=== PATIENT | male | born 1985 | race Caucasian/White ===

== ENCOUNTER 2016-09-21 21:04 | Emergency (ER) | payer SELFPAY ==
[~2016-09-21] VITALS: Ht 160 cm; Wt 66.5 kg
[~2016-09-21 21:04] MED LIST: ACET1TAB40 PO; FAMO-18 PO; HYDR-3498 PO; PANT40TA3 PO; PRED20TA PO
[2016-09-21 21:05] VITALS: Ht 160 cm; Wt 66.5 kg
== END 2016-09-21 23:15 | disposition left against medical advice (07) ==
LOC: FTE 21:04
DX: Z53.21 Procedure and treatment not carried out due to patient leaving prior to being seen by health care provider (principal)

== ENCOUNTER 2017-02-07 15:26 | Emergency (ER) | payer OTHER ==
[~2017-02-07] VITALS: Ht 157.5 cm; Wt 65.0 kg
[2017-02-07 15:29] VITALS: Ht 157.5 cm; Wt 65.0 kg
[2017-02-07] MEDS ORDERED: ONDANSETRON (ODT) 4 MG TAB ODT STA (16:37)
[2017-02-07] MEDS ORDERED: HYDROCODONE/APAP (5/325) TAB PO ONE (17:00)
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
--- NOTE | 2017-02-07 17:32 | RADRPT ---
PROCEDURE: XR Left Hand. CLINICAL INDICATION: Left hand pain. TECHNIQUE: Three views. Frontal lateral and oblique images of the left hand were obtained. COMPARISON: No prior studies are available for comparison. FINDINGS: There is no fracture or dislocation. The soft tissues are normal. Articular surfaces are intact. There is no lytic or blastic lesion. There is no radiopaque foreign body. IMPRESSION: 1. Unremarkable images of the left hand. RPTAT: QQ .Javier Felix MD, MD Date Time Electronically viewed and signed by .Javier Felix MD, MD on 02/07/2017 17:32 .R/
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
[2017-02-07] MEDS ORDERED: ACET500C5 PO (17:42)
[2017-02-07] MEDS ORDERED: NAPR-260 PO (17:42)
[2017-02-07] MEDS ORDERED: NEOM1PAC TP (17:43)
[2017-02-07] MEDS ORDERED: ONDA4TAB8 PO (17:44)
[2017-02-07] MEDS ORDERED: BACITRACIN 0.9 GM OINT TOP ONE (18:00)
[2017-02-07 18:01] VITALS: BP 121/74; PULSE 73; RESP 18; TEMP 98.7
== END 2017-02-07 18:04 | disposition home or self-care (01) ==
LOC: FTE 15:26
DX: S09.90XA Unspecified injury of head, initial encounter (principal); S40.212A Abrasion of left shoulder, initial encounter; R11.0 Nausea; F17.210 Nicotine dependence, cigarettes, uncomplicated; R51 Headache; V13.4XXA Pedal cycle driver injured in collision with car, pick-up truck or van in traffic accident, initial encounter
CPT/HCPCS: 70450; 73030; 73130; Z7502; Z7610

== ENCOUNTER 2018-04-10 18:09 | Emergency (ER) | END 2018-04-10 19:09 | disposition home or self-care (01) ==

== ENCOUNTER 2019-01-19 13:13 | Emergency (ER) | payer OTHER ==
[~2019-01-19] VITALS: Wt 62.1 kg
[~2019-01-19 13:13] MED LIST changes: +ACET500C5 PO; +CLOT30CR24 TOP; -FAMO-18 PO; +FAMO-96 PO; +NAPR-985 PO; +NEOM1PAC TP; +ONDA4TAB8 PO
[2019-01-19 13:15] VITALS: BP 103/55; PULSE 91; RESP 18
[2019-01-19] MEDS ORDERED: KETOROLAC 30 MG INJ IM STA (15:05)
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
[2019-01-19] MEDS ORDERED: IBUP-1561 PO (15:42)
[2019-01-19] MEDS ORDERED: TRAM50TA2 PO (15:42)
== END 2019-01-19 16:06 | disposition home or self-care (01) ==
LOC: FTE 13:13
DX: S89.91XA Unspecified injury of right lower leg, initial encounter (principal); X58.XXXA Exposure to other specified factors, initial encounter; Y92.9 Unspecified place or not applicable; Z87.891 Personal history of nicotine dependence
CPT/HCPCS: 73562; 96372; J1885; Z7502